=== PATIENT | male | born 1980 | race African-American/Black ===

== ENCOUNTER 2016-06-30 19:14 | Observation (INO) | payer MEDICARE, MEDICAID ==
[2016-06-30 19:33] VITALS: TEMP 97.9; BMI 36.9
[2016-06-30 19:44] LABS: AUTOMATED BASOPHIL 0.8 % (0-2); AUTOMATED EOSINOPHIL 6.6 % (0-5); AUTOMATED LYMPH 25.9 % (17-44); AUTOMATED MONOCYTE 7.4 % (3-10); AUTOMATED NEUTROPHIL 59.3 % (45-76); MPV 8.3 fL (7.4-10.4)
[2016-06-30 19:45] LABS: LEUKOCYTES/URINE NEG (NEGATIVE); NITRITE/URINE NEG (NEGATIVE); URINE OCCULT BLOOD NEG (NEG/TRACE); WBC/URINE 0-2 (0-2)
[2016-06-30 19:47] LABS: ALL NEG? YES; MDMA* NEG (NEGATIVE); METHAMPHETAMINES NEG (NEGATIVE); OXYCODONE NEG (NEGATIVE)
[2016-06-30 19:53] LABS: BLOOD UREA NITROGEN 12 MG/DL (9-20); CALCIUM 9.3 MG/DL (8.4-10.2); CALCULATED OSMOLALITY 270 MOs/Kg (270-290); CHLORIDE 102 mEq/L (98-107); ETOH-MGDL < 10 mg/dL; GLUCOSE 78 MG/DL (70-99); SODIUM LEVEL 141 mEq/L (137-146); TOTAL PROTEIN 7.6 G/DL (6.3-8.2)
--- NOTE | 2016-06-30 20:44 | EDPRACDOC ---
- General Information Information Source: Patient Mode of Arrival: Law Enforcement - History of Present Illness Onset: Earlier today Reason for Seeking Treatment: 911 Call Presents With: Reports: Bizarre Behavior, Auditory Hallucinations Expresses: Reports: Suicidal Intent Stressors: Reports: Family Relevant History: Reports: Depression Medication Compliance: Yes Associated Signs and Symptoms: Reports: Depression <Eddi Arreguin - Last Filed: 06/30/16 20:42> <Lm Cancino - Last Filed: 07/01/16 00:39> - General Information Chief Complaint: Psychiatric Illness Stated Complaint: DEPRESSION/SI/HEARING VOICES Time Seen by Provider: 06/30/16 20:42 Home Medications: Home Medications Benztropine Mesylate 1 mg PO BID 01/20/16 Escitalopram Oxalate [Lexapro] 10 mg PO DAILY 01/20/16 Gabapentin 300 mg PO TID 01/20/16 Hydrochlorothiazide [Microzide] 12.5 mg PO DAILY 01/20/16 Lisinopril [Zestril] 30 mg PO DAILY 01/20/16 Pantoprazole Sodium [Protonix] 40 mg PO DAILY 01/20/16 Quetiapine Fumarate [Seroquel] 100 mg PO BID 01/20/16 Quetiapine Fumarate [Seroquel] 200 mg PO QHS 01/20/16 Haloperidol Decanoate [Haldol Decanoate 100] 100 mg IM .MONTHLY 05/27/16 Allergies/Adverse Reactions: Allergies Allergy/AdvReac Type Severity Reaction Status Date / Time No Known Allergies Allergy Verified 05/26/16 14:55 ED Past Medical History - History Reviewed Yes Nurses notes reviewed and agree except as marked - Patient Medical History Cardiac History: Reports: Hypertension Psychological History: Reports: Depression, Bipolar Disorder - Social Medical History Smoking Status: Heavy tobacco smoker (5 or more cigarettes/day or daily pipe/ cigar) <Eddi Arreguin - Last Filed: 06/30/16 20:42> EDM Review of Systems - Review of Systems ROS Negative Except as Marked: Yes All systems reviewed and were negative except as marked <Eddi Arreguin - Last Filed: 06/30/16 20:42> - Physical Exam Constitutional: Alert (Awake), No apparent distress Oriented to: Time, Person, Place Last recorded Vital Signs: Last Vital Signs Temp 97.9 F 06/30/16 19:20 Pulse 71 06/30/16 20:35 Resp 18 06/30/16 20:35 BP 125/71 06/30/16 20:35 Pulse Ox 94 06/30/16 20:35 Oxygen Pulse Oxygen Saturation 94 O2 Device Room Air Oxygen Flow Rate Fraction of Inspired Oxygen ( FIO2) - HEENT Head: Normal ( normocephalic) Eye Exam: Normal (PERRL, EOMI, Sclera white) Oropharynx: Normal (Pharynx:Moist without exudate,Gums-no swelling) Tympanic Membrane: Normal ENT EAC: Normal TMJ: Normal Nose: No Symptoms Reported (septum midline) Neck: Normal (FROM, trachea at midline) - Respiratory/Cardiovascular Respiratory: Normal - CTA (BBS clear to auscultation without adventitious sounds ) Cardiovascular: Normal (RRR without murmur, gallop or rub) - GI Auscultation: Normal (NABS) Palpation: Normal (Soft,No rebound or guarding, non distended) Tenderness: Non tender Foss's Sign: Negative - Musculoskeletal Back: Normal (Non-Tender) Extremities: Normal (Normal tone, Pulses 2+ No cyanosis or edema, FROM) - Integumentary Skin: Normal, Warm, Dry Lymphatics: Normal (no adenopathy) - Neurologic Memory Impaired: Normal Motor Function: Normal (Normal tone, Pulses 2+ No cyanosis or edema, FROM) Cranial Nerve: Normal (CN II-X11 intact sensation, strength 5/5) Cerebellar: Normal Mood Description: Normal Perception: Normal <Eddi Arreguin - Last Filed: 06/30/16 20:42> - Physical Exam Last recorded Vital Signs: Last Vital Signs Temp 97.9 F 06/30/16 19:20 Pulse 69 06/30/16 20:55 Resp 18 06/30/16 20:50 BP 128/67 06/30/16 20:55 Pulse Ox 95 06/30/16 20:55 Oxygen Pulse Oxygen Saturation 94 O2 Device Room Air Oxygen Flow Rate Fraction of Inspired Oxygen ( FIO2) <Lm Cancino - Last Filed: 07/01/16 00:39> Initial Evaluation Apperance: Neat, Stated Age Attitude: Cooperative Mood: Euthymic Affect: Congruent w/ mood Insight: Poor Judgement: Poor Depressive Symptoms: Reports: Sadness. Denies: Crying episodes, Hopelessness, Poor Concentration, Poor Energy, Sleep changes, Worthlessness <Eddi Arreguin - Last Filed: 06/30/16 20:42> - Results 06/30/16 19:31 06/30/16 19:31 WBC 8.7 xk/uL (3.8-10.8) 06/30/16 19:31 RBC 4.93 xM/uL (4.70-6.10) 06/30/16 19:31 Hgb 14.7 g/dL (14.0-18.0) 06/30/16 19:31 Hct 42.6 % (42-52) 06/30/16 19:31 MCV 87 fL (80-94) 06/30/16 19:31 MCH 29.8 pg (27-32) 06/30/16 19:31 MCHC 34.5 g/dl (33-36) 06/30/16 19:31 RDW 13.6 % (11.5-14.5) 06/30/16 19:31 Plt Count 226 xk/uL (130-400) 06/30/16 19:31 MPV 8.3 fL (7.4-10.4) 06/30/16 19:31 Neut % (Auto) 59.3 % (45-76) 06/30/16 19:31 Lymph % (Auto) 25.9 % (17-44) 06/30/16 19:31 [place] % (Auto) 7.4 % (3-10) 06/30/16 19:31 Eos % (Auto) 6.6 % (0-5) H 06/30/16 19:31 Baso % (Auto) 0.8 % (0-2) 06/30/16 19:31 Absolute Neuts (auto) 5.13 xk/uL (1.7-8.2) 06/30/16 19:31 Absolute Lymphs (auto) 2.18 xk/uL (0.65-4.75) 06/30/16 19:31 Sodium 141 mEq/L (137-146) 06/30/16 19:31 Potassium 3.6 mEq/L (3.5-5.1) 06/30/16 19:31 Chloride 102 mEq/L (98-107) 06/30/16 19:31 Carbon Dioxide 25 mMOL/L (22-33) 06/30/16 19:31 Anion Gap 18 mEq/L (8-16) H 06/30/16 19:31 BUN 12 MG/DL (9-20) 06/30/16 19:31 Creatinine 0.90 MG/DL (0.66-1.25) 06/30/16 19:31 Estimated GFR (MDRD) > 60 mL/min (>=60) 06/30/16 19:31 Glucose 78 MG/DL (70-99) 06/30/16 19:31 Calculated Osmolality 270 MOs/Kg (270-290) 06/30/16 19:31 Calcium 9.3 MG/DL (8.4-10.2) 06/30/16 19:31 Total Bilirubin 0.5 MG/DL (0.2-1.3) 06/30/16 19:31 AST 32 IU/L (17-59) 06/30/16 19:31 ALT 41 IU/L (21-72) 06/30/16 19:31 Alkaline Phosphatase 89 IU/L (38-126) 06/30/16 19:31 Total Protein 7.6 G/DL (6.3-8.2) 06/30/16 19:31 Albumin 4.2 G/DL (3.5-5.0) 06/30/16 19:31 Urine Color Yellow 06/30/16 19:34 Urine Clarity Clear 06/30/16 19:34 Urine pH 6.0 (5.0-8.0) 06/30/16 19:34 Ur Specific [place] 1.015 (1.003-1.035) 06/30/16 19:34 Urine Protein Neg (NEG/TRACE) 06/30/16 19:34 Urine Glucose (UA) Neg (NEGATIVE) 06/30/16 19:34 Urine Ketones Neg (NEGATIVE) 06/30/16 19:34 Urine Occult Blood Neg (NEG/TRACE) 06/30/16 19:34 Urine Nitrite Neg (NEGATIVE) 06/30/16 19:34 Urine Bilirubin Neg (NEGATIVE) 06/30/16 19:34 Urine Urobilinogen <2.0 MG/DL (0-1) 06/30/16 19:34 Ur Leukocyte Esterase Neg (NEGATIVE) 06/30/16 19:34 Urine RBC 2-5 (0-2) H 06/30/16 19:34 Urine WBC 0-2 (0-2) 06/30/16 19:34 Ur Epithelial Cells Occ 06/30/16 19:34 Urine Mucus Occ (NEG/OCC) 06/30/16 19:34 Urine Opiates Screen Neg (NEGATIVE) 06/30/16 19:34 Ur Oxycodone Screen Neg (NEGATIVE) 06/30/16 19:34 Urine Methadone Screen Neg (NEGATIVE) 06/30/16 19:34 Ur Barbiturates Screen Neg (NEGATIVE) 06/30/16 19:34 Ur Tricyclics Screen Neg (NEGATIVE) 06/30/16 19:34 Ur Phencyclidine Scrn Neg (NEGATIVE) 06/30/16 19:34 Ur Amphetamines Screen Neg (NEGATIVE) 06/30/16 19:34 U Methamphetamines Scrn Neg (NEGATIVE) 06/30/16 19:34 Urine MDMA Screen Neg (NEGATIVE) 06/30/16 19:34 U Benzodiazepines Scrn Neg (NEGATIVE) 06/30/16 19:34 Urine Cocaine Screen Neg (NEGATIVE) 06/30/16 19:34 Ur THC Screen Neg (NEGATIVE) 06/30/16 19:34 Plasma/Serum Ethyl Alc % (<0.01) 06/30/16 19:31 Lab Results 06/30/16 06/30/16 06/30/16 19:34 19:34 19:31 WBC 8.7 RBC 4.93 Hgb 14.7 Hct 42.6 MCV 87 MCH 29.8 MCHC 34.5 RDW 13.6 Plt Count 226 MPV 8.3 Neut % (Auto) 59.3 Lymph % (Auto) 25.9 [place] % (Auto) 7.4 Eos % (Auto) 6.6 H Baso % (Auto) 0.8 Absolute Neuts (auto) 5.13 Absolute Lymphs (auto) 2.18 Sodium Potassium Chloride Carbon Dioxide Anion Gap BUN Creatinine Estimated GFR (MDRD) Glucose Calculated Osmolality Calcium Total Bilirubin AST ALT Alkaline Phosphatase Total Protein Albumin Urine Color Yellow Urine Clarity Clear Urine pH 6.0 Ur Specific [place] 1.015 Urine Protein Neg Urine Glucose (UA) Neg Urine Ketones Neg Urine Occult Blood Neg Urine Nitrite Neg Urine Bilirubin Neg Urine Urobilinogen <2.0 Ur Leukocyte Esterase Neg Urine RBC 2-5 H Urine WBC 0-2 Ur Epithelial Cells Occ Urine Mucus Occ Urine Opiates Screen Neg Ur Oxycodone Screen Neg Urine Methadone Screen Neg Ur Barbiturates Screen Neg Ur Tricyclics Screen Neg Ur Phencyclidine Scrn Neg Ur Amphetamines Screen Neg U Methamphetamines Scrn Neg Urine MDMA Screen Neg U Benzodiazepines Scrn Neg Urine Cocaine Screen Neg Ur THC Screen Neg Plasma/Serum Ethyl Alc 06/30/16 19:31 WBC RBC Hgb Hct MCV MCH MCHC RDW Plt Count MPV Neut % (Auto) Lymph % (Auto) [place] % (Auto) Eos % (Auto) Baso % (Auto) Absolute Neuts (auto) Absolute Lymphs (auto) Sodium 141 Potassium 3.6 Chloride 102 Carbon Dioxide 25 Anion Gap 18 H BUN 12 Creatinine 0.90 Estimated GFR (MDRD) > 60 Glucose 78 Calculated Osmolality 270 Calcium 9.3 Total Bilirubin 0.5 AST 32 ALT 41 Alkaline Phosphatase 89 Total Protein 7.6 Albumin 4.2 Urine Color Urine Clarity Urine pH Ur Specific [place] Urine Protein Urine Glucose (UA) Urine Ketones Urine Occult Blood Urine Nitrite Urine Bilirubin Urine Urobilinogen Ur Leukocyte Esterase Urine RBC Urine WBC Ur Epithelial Cells Urine Mucus Urine Opiates Screen Ur Oxycodone Screen Urine Methadone Screen Ur Barbiturates Screen Ur Tricyclics Screen Ur Phencyclidine Scrn Ur Amphetamines Screen U Methamphetamines Scrn Urine MDMA Screen U Benzodiazepines Scrn Urine Cocaine Screen Ur THC Screen Plasma/Serum Ethyl Alc <Eddi Arreguin - Last Filed: 06/30/16 20:42> - Results 06/30/16 19:31 06/30/16 19:31 WBC 8.7 xk/uL (3.8-10.8) 06/30/16 19:31 RBC 4.93 xM/uL (4.70-6.10) 06/30/16 19:31 Hgb 14.7 g/dL (14.0-18.0) 06/30/16 19:31 Hct 42.6 % (42-52) 06/30/16 19:31 MCV 87 fL (80-94) 06/30/16 19:31 MCH 29.8 pg (27-32) 06/30/16 19:31 MCHC 34.5 g/dl (33-36) 06/30/16 19:31 RDW 13.6 % (11.5-14.5) 06/30/16 19:31 Plt Count 226 xk/uL (130-400) 06/30/16 19:31 MPV 8.3 fL (7.4-10.4) 06/30/16 19:31 Neut % (Auto) 59.3 % (45-76) 06/30/16 19:31 Lymph % (Auto) 25.9 % (17-44) 06/30/16 19:31 [place] % (Auto) 7.4 % (3-10) 06/30/16 19:31 Eos % (Auto) 6.6 % (0-5) H 06/30/16 19:31 Baso % (Auto) 0.8 % (0-2) 06/30/16 19:31 Absolute Neuts (auto) 5.13 xk/uL (1.7-8.2) 06/30/16 19:31 Absolute Lymphs (auto) 2.18 xk/uL (0.65-4.75) 06/30/16 19:31 Sodium 141 mEq/L (137-146) 06/30/16 19:31 Potassium 3.6 mEq/L (3.5-5.1) 06/30/16 19:31 Chloride 102 mEq/L (98-107) 06/30/16 19:31 Carbon Dioxide 25 mMOL/L (22-33) 06/30/16 19:31 Anion Gap 18 mEq/L (8-16) H 06/30/16 19:31 BUN 12 MG/DL (9-20) 06/30/16 19:31 Creatinine 0.90 MG/DL (0.66-1.25) 06/30/16 19:31 Estimated GFR (MDRD) > 60 mL/min (>=60) 06/30/16 19:31 Glucose 78 MG/DL (70-99) 06/30/16 19:31 Calculated Osmolality 270 MOs/Kg (270-290) 06/30/16 19:31 Calcium 9.3 MG/DL (8.4-10.2) 06/30/16 19:31 Total Bilirubin 0.5 MG/DL (0.2-1.3) 06/30/16 19:31 AST 32 IU/L (17-59) 06/30/16 19:31 ALT 41 IU/L (21-72) 06/30/16 19:31 Alkaline Phosphatase 89 IU/L (38-126) 06/30/16 19:31 Total Protein 7.6 G/DL (6.3-8.2) 06/30/16 19:31 Albumin 4.2 G/DL (3.5-5.0) 06/30/16 19:31 Urine Color Yellow 06/30/16 19:34 Urine Clarity Clear 06/30/16 19:34 Urine pH 6.0 (5.0-8.0) 06/30/16 19:34 Ur Specific [place] 1.015 (1.003-1.035) 06/30/16 19:34 Urine Protein Neg (NEG/TRACE) 06/30/16 19:34 Urine Glucose (UA) Neg (NEGATIVE) 06/30/16 19:34 Urine Ketones Neg (NEGATIVE) 06/30/16 19:34 Urine Occult Blood Neg (NEG/TRACE) 06/30/16 19:34 Urine Nitrite Neg (NEGATIVE) 06/30/16 19:34 Urine Bilirubin Neg (NEGATIVE) 06/30/16 19:34 Urine Urobilinogen <2.0 MG/DL (0-1) 06/30/16 19:34 Ur Leukocyte Esterase Neg (NEGATIVE) 06/30/16 19:34 Urine RBC 2-5 (0-2) H 06/30/16 19:34 Urine WBC 0-2 (0-2) 06/30/16 19:34 Ur Epithelial Cells Occ 06/30/16 19:34 Urine Mucus Occ (NEG/OCC) 06/30/16 19:34 Urine Opiates Screen Neg (NEGATIVE) 06/30/16 19:34 Ur Oxycodone Screen Neg (NEGATIVE) 06/30/16 19:34 Urine Methadone Screen Neg (NEGATIVE) 06/30/16 19:34 Ur Barbiturates Screen Neg (NEGATIVE) 06/30/16 19:34 Ur Tricyclics Screen Neg (NEGATIVE) 06/30/16 19:34 Ur Phencyclidine Scrn Neg (NEGATIVE) 06/30/16 19:34 Ur Amphetamines Screen Neg (NEGATIVE) 06/30/16 19:34 U Methamphetamines Scrn Neg (NEGATIVE) 06/30/16 19:34 Urine MDMA Screen Neg (NEGATIVE) 06/30/16 19:34 U Benzodiazepines Scrn Neg (NEGATIVE) 06/30/16 19:34 Urine Cocaine Screen Neg (NEGATIVE) 06/30/16 19:34 Ur THC Screen Neg (NEGATIVE) 06/30/16 19:34 Plasma/Serum Ethyl Alc % (<0.01) 06/30/16 19:31 Lab Results 06/30/16 06/30/16 06/30/16 19:34 19:34 19:31 WBC 8.7 RBC 4.93 Hgb 14.7 Hct 42.6 MCV 87 MCH 29.8 MCHC 34.5 RDW 13.6 Plt Count 226 MPV 8.3 Neut % (Auto) 59.3 Lymph % (Auto) 25.9 [place] % (Auto) 7.4 Eos % (Auto) 6.6 H Baso % (Auto) 0.8 Absolute Neuts (auto) 5.13 Absolute Lymphs (auto) 2.18 Sodium Potassium Chloride Carbon Dioxide Anion Gap BUN Creatinine Estimated GFR (MDRD) Glucose Calculated Osmolality Calcium Total Bilirubin AST ALT Alkaline Phosphatase Total Protein Albumin Urine Color Yellow Urine Clarity Clear Urine pH 6.0 Ur Specific [place] 1.015 Urine Protein Neg Urine Glucose (UA) Neg Urine Ketones Neg Urine Occult Blood Neg Urine Nitrite Neg Urine Bilirubin Neg Urine Urobilinogen <2.0 Ur Leukocyte Esterase Neg Urine RBC 2-5 H Urine WBC 0-2 Ur Epithelial Cells Occ Urine Mucus Occ Urine Opiates Screen Neg Ur Oxycodone Screen Neg Urine Methadone Screen Neg Ur Barbiturates Screen Neg Ur Tricyclics Screen Neg Ur Phencyclidine Scrn Neg Ur Amphetamines Screen Neg U Methamphetamines Scrn Neg Urine MDMA Screen Neg U Benzodiazepines Scrn Neg Urine Cocaine Screen Neg Ur THC Screen Neg Plasma/Serum Ethyl Alc 06/30/16 19:31 WBC RBC Hgb Hct MCV MCH MCHC RDW Plt Count MPV Neut % (Auto) Lymph % (Auto) [place] % (Auto) Eos % (Auto) Baso % (Auto) Absolute Neuts (auto) Absolute Lymphs (auto) Sodium 141 Potassium 3.6 Chloride 102 Carbon Dioxide 25 Anion Gap 18 H BUN 12 Creatinine 0.90 Estimated GFR (MDRD) > 60 Glucose 78 Calculated Osmolality 270 Calcium 9.3 Total Bilirubin 0.5 AST 32 ALT 41 Alkaline Phosphatase 89 Total Protein 7.6 Albumin 4.2 Urine Color Urine Clarity Urine pH Ur Specific [place] Urine Protein Urine Glucose (UA) Urine Ketones Urine Occult Blood Urine Nitrite Urine Bilirubin Urine Urobilinogen Ur Leukocyte Esterase Urine RBC Urine WBC Ur Epithelial Cells Urine Mucus Urine Opiates Screen Ur Oxycodone Screen Urine Methadone Screen Ur Barbiturates Screen Ur Tricyclics Screen Ur Phencyclidine Scrn Ur Amphetamines Screen U Methamphetamines Scrn Urine MDMA Screen U Benzodiazepines Scrn Urine Cocaine Screen Ur THC Screen Plasma/Serum Ethyl Alc - Additional Information Additional Information: I spoke w/mental health, he stated that he spoke with the correction. this behavior is a pattern of behavior for this patient, and the pt contracted for safety. his meds will be administered in a controlled manner <Lm Cancino - Last Filed: 07/01/16 00:39> - Departure Yes I personally saw and evaluated the patient. Disposition: Admit to <Eddi Arreguin - Last Filed: 06/30/16 20:42> Decision Time to Discharge: 00:33 - Departure Disposition: Admit to Education/Counseling Given To: Patient Education/Counseling Given Regarding: Diagnosis, Treatment, Follow Up <Lm Cancino - Last Filed: 07/01/16 00:39> - Departure Condition: Good Final Diagnosis: PSYCHOSIS
[2016-06-30] MEDS ORDERED: ONDANSETRON HCL 4 MG ODT TAB PO PRN (20:45)
[2016-06-30] MEDS ORDERED: MAGNESIUM HYDROXIDE 30 ML BOTTLE PO PRN (20:45)
[2016-06-30] MEDS ORDERED: Docusate Sodium 100 MG CAP PO PRN (20:45)
[2016-06-30] MEDS ORDERED: LORAZEPAM 0.5 MG TAB PO PRN (20:45)
[2016-06-30] MEDS ORDERED: ACETAMINOPHEN 325 MG/TAB TABLET PO PRN (20:45)
[2016-06-30] MEDS ORDERED: GUAIFENESIN 200 MG/10 ML UDC PO PRN (20:45)
[2016-06-30] MEDS ORDERED: TEMAZEPAM 15 MG CAP PO PRN (20:45)
[2016-06-30] MEDS ORDERED: NICOTINE 14 MG PATCH TOP SCH (21:00)
[2016-07-01 01:51] VITALS: BP 110/55; PULSE 83
== END 2016-07-01 01:49 | disposition home or self-care (01) ==
LOC: ED 19:14 → EDINP 20:45
PROVIDERS: ADMIT Family Medicine; ATTEND Family Medicine
DX: F29 Unspecified psychosis not due to a substance or known physiological condition (principal); I10 Essential (primary) hypertension; F17.210 Nicotine dependence, cigarettes, uncomplicated; Z79.899 Other long term (current) drug therapy
CPT/HCPCS: 36415; 80053; 80307; 81001; 85025; 86592; 99284; A9270; G0378; G0479; 80320; J3490

== ENCOUNTER 2016-07-14 06:48 | Emergency (ER) | payer MEDICARE, MEDICAID ==
[2016-07-14 06:54] VITALS: BMI 36.9
[2016-07-14 07:06] VITALS: TEMP 98
[2016-07-14] MEDS ORDERED: MORPHINE 4 MG/ML INJECTION IV ONE (07:18)
[2016-07-14] MEDS ORDERED: NS 1,000 ML IV ONE ×2 (07:18)
[2016-07-14] MEDS ORDERED: ONDANSETRON HCL 4 MG/2 ML VIAL IV ONE (07:18)
--- NOTE | 2016-07-14 07:20 | EDPRACDOC ---
- General Information Chief Complaint: Abdominal Pain Stated Complaint: ABD PAIN Time Seen by Provider: 07/14/16 07:13 Information Source: Patient Mode Of Arrival: Ambulance Home Medications: Home Medications Benztropine Mesylate 1 mg PO BID 01/20/16 Escitalopram Oxalate [Lexapro] 10 mg PO DAILY 01/20/16 Gabapentin 300 mg PO TID 01/20/16 Hydrochlorothiazide [Microzide] 12.5 mg PO DAILY 01/20/16 Lisinopril [Zestril] 30 mg PO DAILY 01/20/16 Pantoprazole Sodium [Protonix] 40 mg PO DAILY 01/20/16 Quetiapine Fumarate [Seroquel] 100 mg PO BID 01/20/16 Quetiapine Fumarate [Seroquel] 200 mg PO QHS 01/20/16 Promethazine [Phenergan] 25 mg PO Q6 PRN #7 tab 07/14/16 Allergies/Adverse Reactions: Allergies Allergy/AdvReac Type Severity Reaction Status Date / Time No Known Allergies Allergy Verified 07/14/16 07:37 - History of Present Illness Onset: 12-16 HOURS Pain Location: Reports: RLQ, LLQ, Periumbilical Pain Context: Reports: Spontaneous Pain Severity: Moderate (INITIALLY INTERMITTENT, NOW CONSTANT. PROGRESSIVELY WORSE.) Pain Quality: Reports: Aching Modifying Factors: improves with: Nothing Associated Signs & Symptoms: Reports: Nausea, Vomiting (X1), Anorexia, Diarrhea (X3-4). Denies: Dysuria, Fever, Urgency Oral Intake: Normal Urinary Output: Normal - Treatment Prior to ED Arrival Reported Medications/Treatment [facility] Treatment BLS ED Past Medical History - History Reviewed Yes Nurses notes reviewed and agree except as marked - Patient Medical History Cardiac History: Reports: Hypertension Psychological History: Reports: Depression, Bipolar Disorder Surgical History: Reports: No Significant History - Family Medical History Reports: No Significant History - Social Medical History Smoking Status: Never smoker ETOH: None Substance Abuse: None Lives With: Other Lives In: Long-Term EDM Review of Systems - Review of Systems ROS Negative Except as Marked: Yes All systems reviewed and were negative except as marked - Physical Exam Constitutional: Alert (Awake), No apparent distress Oriented to: Time, Person, Place Last recorded Vital Signs: Last Vital Signs Temp 98.0 F 07/14/16 06:58 Pulse 81 07/14/16 08:49 Resp 20 07/14/16 08:49 BP 114/71 07/14/16 08:49 Pulse Ox 94 07/14/16 08:49 Oxygen Pulse Oxygen Saturation 94 O2 Device Room Air Oxygen Flow Rate Fraction of Inspired Oxygen ( FIO2) - HEENT Head: Normal ( normocephalic) Eye Exam: Normal (PERRL, EOMI, Sclera white) Oropharynx: Normal (Pharynx:Moist without exudate,Gums-no swelling) Nose: No Symptoms Reported (septum midline) Neck: Normal (FROM, trachea at midline) - Respiratory/Cardiovascular Respiratory: Normal - CTA (BBS clear to auscultation without adventitious sounds ) Cardiovascular: Normal (RRR without murmur, gallop or rub) - GI Auscultation: Normal (NABS) Palpation: Normal (Soft,No rebound or guarding, non distended) Tenderness: Mild, Moderate, Periumbilical. negative: Guarding, Rebound, Rigidity Foss's Sign: Negative - Musculoskeletal Back: Normal (Non-Tender) Extremities: Normal (Normal tone, Pulses 2+ No cyanosis or edema, FROM) - Integumentary Skin: Normal, Warm, Dry Lymphatics: Normal (no adenopathy) - Neurologic Memory Impaired: Normal Motor Function: Normal (Normal tone, Pulses 2+ No cyanosis or edema, FROM) Cranial Nerve: Normal (CN II-X11 intact sensation, strength 5/5) Cerebellar: Normal Mood Description: Normal Perception: Normal - Results 07/14/16 07:45 07/14/16 07:45 WBC 9.9 xk/uL (3.8-10.8) 07/14/16 07:45 RBC 5.11 xM/uL (4.70-6.10) 07/14/16 07:45 Hgb 15.0 g/dL (14.0-18.0) 07/14/16 07:45 Hct 43.9 % (42-52) 07/14/16 07:45 MCV 86 fL (80-94) 07/14/16 07:45 MCH 29.4 pg (27-32) 07/14/16 07:45 MCHC 34.3 g/dl (33-36) 07/14/16 07:45 RDW 13.5 % (11.5-14.5) 07/14/16 07:45 Plt Count 255 xk/uL (130-400) 07/14/16 07:45 MPV 7.8 fL (7.4-10.4) 07/14/16 07:45 Neut % (Auto) 74.4 % (45-76) 07/14/16 07:45 Lymph % (Auto) 14.2 % (17-44) L 07/14/16 07:45 [place] % (Auto) 7.0 % (3-10) 07/14/16 07:45 Eos % (Auto) 3.5 % (0-5) 07/14/16 07:45 Baso % (Auto) 0.9 % (0-2) 07/14/16 07:45 Absolute Neuts (auto) 7.33 xk/uL (1.7-8.2) 07/14/16 07:45 Absolute Lymphs (auto) 1.39 xk/uL (0.65-4.75) 07/14/16 07:45 Sodium 140 mEq/L (137-146) 07/14/16 07:45 Potassium 3.8 mEq/L (3.5-5.1) 07/14/16 07:45 Chloride 102 mEq/L (98-107) 07/14/16 07:45 Carbon Dioxide 28 mMOL/L (22-33) 07/14/16 07:45 Anion Gap 14 mEq/L (8-16) 07/14/16 07:45 BUN 17 MG/DL (9-20) 07/14/16 07:45 Creatinine 0.90 MG/DL (0.66-1.25) 07/14/16 07:45 Estimated GFR (MDRD) > 60 mL/min (>=60) 07/14/16 07:45 Glucose 90 MG/DL (70-99) 07/14/16 07:45 Calculated Osmolality 271 MOs/Kg (270-290) 07/14/16 07:45 Calcium 9.0 MG/DL (8.4-10.2) 07/14/16 07:45 Total Bilirubin 0.6 MG/DL (0.2-1.3) 07/14/16 07:45 AST 29 IU/L (17-59) 07/14/16 07:45 ALT 36 IU/L (21-72) 07/14/16 07:45 Alkaline Phosphatase 100 IU/L (38-126) 07/14/16 07:45 Total Protein 7.7 G/DL (6.3-8.2) 07/14/16 07:45 Albumin 4.3 G/DL (3.5-5.0) 07/14/16 07:45 Urine Color Yellow 07/14/16 08:02 Urine Clarity Sl hzy 07/14/16 08:02 Urine pH 6.0 (5.0-8.0) 07/14/16 08:02 Ur Specific [place] 1.015 07/14/16 08:02 Urine Protein Trace (NEG/TRACE) 07/14/16 08:02 Urine Glucose (UA) Neg (NEGATIVE) 07/14/16 08:02 Urine Ketones Neg (NEGATIVE) 07/14/16 08:02 Urine Occult Blood Neg (NEG/TRACE) 07/14/16 08:02 Urine Nitrite Neg (NEGATIVE) 07/14/16 08:02 Urine Bilirubin Neg (NEGATIVE) 07/14/16 08:02 Urine Urobilinogen 0.2 MG/DL (0-1) 07/14/16 08:02 Ur Leukocyte Esterase Neg (NEGATIVE) 07/14/16 08:02 Urine RBC 2-5 (0-2) H 07/14/16 08:02 Urine WBC 0-2 (0-2) 07/14/16 08:02 Ur Epithelial Cells Occ 07/14/16 08:02 Urine Bacteria Few (NEG/FEW) 07/14/16 08:02 Urine Mucus Mod (NEG/OCC) H 07/14/16 08:02 Lab Results 07/14/16 07/14/16 07/14/16 08:02 07:45 07:45 WBC 9.9 RBC 5.11 Hgb 15.0 Hct 43.9 MCV 86 MCH 29.4 MCHC 34.3 RDW 13.5 Plt Count 255 MPV 7.8 Neut % (Auto) 74.4 Lymph % (Auto) 14.2 L [place] % (Auto) 7.0 Eos % (Auto) 3.5 Baso % (Auto) 0.9 Absolute Neuts (auto) 7.33 Absolute Lymphs (auto) 1.39 Sodium 140 Potassium 3.8 Chloride 102 Carbon Dioxide 28 Anion Gap 14 BUN 17 Creatinine 0.90 Estimated GFR (MDRD) > 60 Glucose 90 Calculated Osmolality 271 Calcium 9.0 Total Bilirubin 0.6 AST 29 ALT 36 Alkaline Phosphatase 100 Total Protein 7.7 Albumin 4.3 Urine Color Yellow Urine Clarity Sl hzy Urine pH 6.0 Ur Specific [place] 1.015 Urine Protein Trace Urine Glucose (UA) Neg Urine Ketones Neg Urine Occult Blood Neg Urine Nitrite Neg Urine Bilirubin Neg Urine Urobilinogen 0.2 Ur Leukocyte Esterase Neg Urine RBC 2-5 H Urine WBC 0-2 Ur Epithelial Cells Occ Urine Bacteria Few Urine Mucus Mod H - Additional Information GAF APPEARS LOW, WILL ERR ON SIDE OF CAUTION AND RULE OUT APPY. - Departure Disposition: Home Condition: Stable Final Diagnosis: Gastroenteritis Instructions: Gastroenteritis (ED) Education/Counseling Given To: Patient Education/Counseling Given Regarding: Diagnosis, Treatment, Prognosis Prescriptions: Promethazine [Phenergan] 25 mg PO Q6 PRN #7 tab PRN Reason: Nausea/Vomiting Additional Instructions: Drink sips of Gatorade every 2-3 minutes while awake. Do NOT drink large volumes of fluid at once. If you vomit, take the nausea-vomiting medicine prescribed, wait ~ 30 minutes, and restart the sipping process. Return to the Emergency Department if you think you are getting dehydrated, have persistent abdominal pain that is unrelenting, have worse or different symptoms, or any concerns.
[2016-07-14] MEDS ORDERED: NICOTINE 21 MG PATCH TOP ONE (07:44)
[2016-07-14 07:56] LABS: AUTOMATED BASOPHIL 0.9 % (0-2); AUTOMATED EOSINOPHIL 3.5 % (0-5); AUTOMATED LYMPH 14.2 % (17-44); AUTOMATED NEUTROPHIL 74.4 % (45-76); MPV 7.8 fL (7.4-10.4)
[2016-07-14] MEDS ORDERED: Pharmacy Review for Metformin - IV Contrast Given SCH (08:00)
[2016-07-14 08:09] LABS: BLOOD UREA NITROGEN 17 MG/DL (9-20); CALCULATED OSMOLALITY 271 MOs/Kg (270-290); CHLORIDE 102 mEq/L (98-107); GLUCOSE 90 MG/DL (70-99); SODIUM LEVEL 140 mEq/L (137-146); TOTAL PROTEIN 7.7 G/DL (6.3-8.2)
[2016-07-14 08:16] LABS: LEUKOCYTES/URINE NEG (NEGATIVE); URINE OCCULT BLOOD NEG (NEG/TRACE)
[2016-07-14 08:17] LABS: NITRITE/URINE NEG (NEGATIVE)
[2016-07-14 08:33] LABS: WBC/URINE 0-2 (0-2)
--- NOTE | 2016-07-14 09:11 | DIRPT ---
CLINICAL DATA: Periumbilical pain with nausea and vomiting for 1 day. Initial encounter. EXAM: CT ABDOMEN AND PELVIS WITH CONTRAST TECHNIQUE: Multidetector CT imaging of the abdomen and pelvis was performed using the standard protocol following bolus administration of intravenous contrast. CONTRAST: 100 cc Isovue 370. COMPARISON: None. FINDINGS: The lung bases are clear. Tiny left pleural effusion is noted. No right pleural effusion or pericardial effusion. There is thickening of the loja of the proximal and mid sigmoid colon with some surrounding stranding. No diverticula are identified. There is no abscess. Small volume of free pelvic fluid is noted. The colon is otherwise unremarkable. The stomach, small bowel and appendix appear normal. There is a 1.6 cm low attenuating lesion in the left hepatic lobe on image 16 which cannot be definitively characterized on this study. The liver otherwise appears normal. Spleen, adrenal glands, pancreas and kidneys appear normal. 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 No focal bony abnormality is seen. IMPRESSION: Wall thickening of the proximal mid sigmoid colon is likely infectious or inflammatory in nature but could be due to neoplasm. Colonoscopy is recommended after the patient's acute episode has passed. Low attenuating lesion in the left hepatic lobe cannot be characterized on this examination. MRI of the abdomen with and without contrast is recommended for further evaluation. Trace left pleural effusion. Electronically Signed By: Sam Mchugh M.D. On: 07/14/2016 09:08
[2016-07-14 11:23] VITALS: BP 134/79; PULSE 75
== END 2016-07-14 11:22 | disposition home or self-care (01) ==
LOC: ED 06:48
DX: K52.9 Noninfective gastroenteritis and colitis, unspecified (principal); I10 Essential (primary) hypertension; F32.9 Major depressive disorder, single episode, unspecified; F31.9 Bipolar disorder, unspecified; Z79.899 Other long term (current) drug therapy
CPT/HCPCS: 36415; 74177; 80053; 81001; 85025; 96361; 96374; 96375; 99284; A9698; J2270; J2405